=== PATIENT | female | born 1995 | race Caucasian/White ===

== ENCOUNTER 2018-08-06 15:29 | Inpatient (IN) ==
[2018-08-06] MEDS ORDERED: RINGER'S SOLUTION,LACTATED 1,000 ML IV PRN (18:55)
[2018-08-06] MEDS ORDERED: PENICILLIN G POTASSIUM 5 MILLIONUNT in DEXTROSE 5 % IN WATER 100 ML IV ONE ×2 (18:55)
[2018-08-06] MEDS ORDERED: MISOPROSTOL 100 MCG TABLET VG PRN (18:55)
[2018-08-06] MEDS ORDERED: RINGER'S SOLUTION,LACTATED 1,000 ML IV ONE (18:55)
[2018-08-06] MEDS ORDERED: LIDOCAINE HCL 50 ML VIAL PERI PRN (18:55)
[2018-08-06] MEDS ORDERED: ONDANSETRON HCL/PF 2 MG/ML VIAL IV PRN (18:55)
[2018-08-06] MEDS ORDERED: NALBUPHINE HCL 10 MG/ML AMPUL IV PRN ×2 (18:55)
[2018-08-06] MEDS ORDERED: OXYTOCIN/DEXTROSE 5%-WATER 30 UNITS/500 ML BAG IV ONE (18:55)
[2018-08-06 19:35] LABS: Cocaine Ur Negative (NEGATIVE); Urine Barbiturate Negative (NEGATIVE); Urine Benzodiazepines Negative (NEGATIVE); Urine Opiates Negative (NEGATIVE); Urine PCP Negative (NEGATIVE); Urine THC Positive (NEGATIVE)
[2018-08-06] MEDS ORDERED: ACETAMINOPHEN 325 MG TABLET PO PRN (20:23)
[2018-08-06] MEDS: PENICILLIN G POTASSIUM 2.5 MILLIONUNT in DEXTROSE 5 % IN WATER 100 ML IV SCH ×2 (23:56)
[2018-08-07] MEDS: PENICILLIN G POTASSIUM 2.5 MILLIONUNT in DEXTROSE 5 % IN WATER 100 ML IV SCH ×2 (03:52)
[2018-08-07] MEDS ORDERED: NALOXONE HCL 1 MG/1 ML SYRG IV PRN (04:00)
[2018-08-07] MEDS ORDERED: ONDANSETRON HCL/PF 2 MG/ML VIAL IV PRN (04:00)
[2018-08-07] MEDS ORDERED: BUPIVACAINE HCL/0.9 % NACL/PF 250 ML EP PRN (04:00)
[2018-08-07] MEDS ORDERED: BUPIVACAINE HCL/PF 30 ML VIAL EP SCH (04:00)
--- NOTE | 2018-08-07 04:32 | ANES ---
Anesthesia Pre Procedure Eval Vitals/Labs: Last Vital Signs Temp 36.6 C 08/06/18 20:36 Pulse 109 H 08/06/18 20:36 Resp 18 08/06/18 20:36 BP 128/72 08/06/18 20:36 Pulse Ox 97 08/06/18 20:36 HOME MEDICATIONS vitamin,calcium,iffllozj-hmxg-teokt acid tablet 1 tab PO DAILY 03/18/18 [Last Taken 08/05/18] ondansetron 4 mg disintegrating tablet 8 mg PO Q8H PRN #12 tab 04/26/18 [Last Taken Unknown] calcium carbonate 200 mg calcium (500 mg) chewable tablet 200 mg PO BID tab 07/30/18 [Last Taken 08/06/18] Allergies/Adverse Reactions: Allergies Allergy/AdvReac Type Severity Reaction Status Date / Time tramadol Allergy Intermediate Itching Verified 08/05/18 14:36 - Planned Procedure Planned Procedure: Mack epidural Medication List Reviewed:: Yes Allergies Verified: Yes Medical History (Last Reviewed 08/07/18 @ 04:31 by Cy Hicks CRNA) Anxiety (Acute) Onset Date: Unknown Chlamydia (Resolved) Onset Date: 2015 and not yet delivered (Acute) Onset Date: Unknown Gonorrhea (Resolved) Onset Date: 2010 Irregular menses (Acute) Onset Date: 01/2017 Migraine (Acute) Onset Date: Unknown Nausea and vomiting during (Acute) Onset Date: 01/2018 Spontaneous (Resolved) Onset Date: 2013 Spontaneous (Resolved) Onset Date: 2016 H/O wisdom tooth extraction (Resolved) Onset Date: Unknown Hyperemesis gravidarum (Acute) Onset Date: Unknown Anxiety (Acute) Onset Date: Unknown Upper respiratory infection (Acute) Onset Date: Unknown (Acute) Onset Date: Unknown Hyperemesis gravidarum before end of 22 week gestation with carbohydrate depletion (Acute) Onset Date: Unknown Metacarpal bone fracture Onset Date: 06/2018 right Miscarriage Surgical History (Last Reviewed 08/07/18 @ 04:31 by Cy Hicks CRNA) none (Acute) Family History (Last Reviewed 08/07/18 @ 04:31 by Cy Hicks CRNA) Uncle Asthma Diabetes Aunt Asthma Diabetes Brother Asthma Father Asthma Diabetes Heart disease Mother Diabetes Thyroid disease H/O: hysterectomy Asthma Sister Asthma Grandmother Diabetes maternal Heart disease Cancer Lung - Family Anesthesia History Family History:: no untoward family reactions to anesthesia, no familial bleeding tendencies, no family history of clotting disorders, no family history of premature - Cardiovascular Tolerates Activity: Good Heart Sounds: S1 & S2 - Anesthesia Assessment and Plan ASA Class: PS, II Anesthesia Type Plan: Epidural
--- NOTE | 2018-08-07 04:47 | ANES ---
Post Anesthesia Assessment - Vital Signs Vitals: Last Vital Signs Temp 36.6 C 08/06/18 20:36 Pulse 109 H 08/06/18 20:36 Resp 18 08/06/18 20:36 BP 128/72 08/06/18 20:36 Pulse Ox 97 08/06/18 20:36 Airway Patency: Normal - Mental Status Level Of Consciousness: Awake - Pain Level Pain Score: 0 - N/V Assessment Nausea/Vomiting Presence: None Dehydration:: No
--- NOTE | 2018-08-07 04:47 | ANES ---
Anesthesia Procedure Note Procedure Note: ANESTHESIA PROCEDURE NOTE Date of Procedure: 08/07/2018. Time of procedure: 0435. Performed by: Cy Hicks CRNA Healthcare Representative: None. Preprocedure diagnosis: Active labor. Post procedure diagnosis: Same. Procedure: Insertion of labor epidural. Indications: The patient is a 23-year-old female in active labor requesting labor epidural for pain management. Findings: See below. Details of the procedure: The patient was placed in a sitting position. DuraPrep as well as Betadine swabs X3 was applied to the patient's back. Patient was then draped in a sterile fashion. Lidocaine 1% was infiltrated to the skin and subcutaneous tissues at the level of the L3-4 interspace. The epidural space was identified using a 18-gauge Tuohy needle with etqq-ao-[id number] technique. Epidural catheter was inserted to a depth of 10 centimeters at skin. Negative test dose was elicited using 3 mL of 1.5% preservative-free lidocaine plus epinephrine 1 200,000. The epidural catheter was then taped and secured in place. A loading dose of 8 mL of 0.25% preservative-free bupivacaine was administered to the epidural catheter after negative aspiration for blood and CSF. EBL: Minimal. Fluids: N/A. Specimen: N/A. Post procedure condition: The patient tolerated the procedure well. No complications were noted. Thank you for this consultation. Cy Hicks CRNA
[2018-08-07] MEDS ORDERED: HYDROCORTISONE 30 APPL TUBE TP PRN (05:43)
[2018-08-07] MEDS ORDERED: SENNOSIDES 8.6 MG TABLET PO PRN (05:43)
[2018-08-07] MEDS ORDERED: GLYCERIN/WITCH HAZEL LEAF 40 APPL BOX TP PRN (05:43)
[2018-08-07] MEDS ORDERED: BENZOCAINE/MENTHOL 81 SPRAY CAN TP PRN (05:43)
[2018-08-07] MEDS ORDERED: BISACODYL 10 MG SUPP.RECT RC PRN (05:43)
[2018-08-07] MEDS ORDERED: OXYTOCIN/DEXTROSE 5%-WATER 30 UNITS/500 ML BAG IV ONE (05:43)
[2018-08-07] MEDS ORDERED: diphenhydrAMINE HCL 25 MG CAPSULE PO PRN (05:43)
[2018-08-07] MEDS ORDERED: oxyCODONE HCL/ACETAMINOPHEN 1 TAB TABLET PO PRN (05:43)
--- NOTE | 2018-08-07 05:44 | PN ---
Progess Note - Interim Date: 08/07/18 Time: 05:44 Narrative: 08/07/18 05:44 See refer to last office visit for H&P
--- NOTE | 2018-08-07 05:55 | OR ---
Operative Report - Dictated Report Narrative: Date of delivery: 08/07/2018 Time of delivery: 530 Gender: female weight: 2325 grams APGARS: 05/26 The patient presented to L&D for an induction of labor for IUGR at 37 weeks 0 days. She received one dose of cytotec followed by pitocin at 2 millinuits. She received an epidural and then progressed to complete dilation. She delivered a viable female over an intact perineum. Cord clamping was delayed for 60 seconds. The placenta was delivered by expression and appeared intact. She had bilateral labial lacerations of which the right labial laceration was repaired for hemostasis. Lacerations: bilateral labial of which the right was repaired in the standard surgical fashion EBL: 100 mL Complications: none Definition: * The number of deliveries resulting in a live the patient experienced prior to current hospitalization * The previous delivery of live twins or any live multiple gestation is considered one live event. *If primagravida or nulliparous is documented select zero for the number of previous live births. Live Births: 0
[2018-08-07] MEDS: DOCUSATE SODIUM 100 MG CAPSULE PO SCH (08:15)
[2018-08-07] MEDS: IBUPROFEN 800 MG TABLET PO PRN ×2 (08:15→17:39)
[2018-08-07] MEDS: oxyCODONE HCL/ACETAMINOPHEN 1 TAB TABLET PO PRN ×3 (08:15→19:36)
[2018-08-08] MEDS: DOCUSATE SODIUM 100 MG CAPSULE PO SCH ×3 (02:21→21:03)
[2018-08-08] MEDS: oxyCODONE HCL/ACETAMINOPHEN 1 TAB TABLET PO PRN ×4 (02:24→19:24)
[2018-08-08] MEDS: IBUPROFEN 800 MG TABLET PO PRN ×4 (02:25→23:01)
--- NOTE | 2018-08-08 10:19 | PN ---
Subjective - Date and Time Seen Date: 08/08/18 Time: 10:16 Subjective Narrative: The patient reports her vaginal bleeding is improving. No other concerns today Objective Objective Narrative: See vital signs - Review of Systems Generalized/Overall Review: Reports: No Symptoms Reported Misc: All systems neg except as marked - Vitals Vitals: Last Vital Signs Temp 36.8 C 08/08/18 02:15 Pulse 80 08/08/18 02:15 Resp 16 08/08/18 02:15 BP 110/65 08/08/18 02:15 Pulse Ox 99 08/08/18 02:15 - Exam Constitutional: Present: Alert, Oriented x3, Cooperative, No distress Abdomen: Present: soft, nontender, nondistended - fundus is firm Extremity: Present: non-tender, no calf tenderness Skin Exam: Present: normal color, warm/dry, no cyanosis Appearance: Present: appropriate appearance Eye contact: Present: cooperative Thoughts: Present: normal thought pattern Assessment/Plan Plan Narrative: PPD 1 s/p Doing well Discharge tomorrow - Problems/Diagnosis (1) IUGR (intrauterine growth restriction) Problem: Acute (2) IUGR (intrauterine growth restriction) Problem: Acute
[2018-08-09] MEDS: oxyCODONE HCL/ACETAMINOPHEN 1 TAB TABLET PO PRN ×3 (01:08→11:23)
[2018-08-09] MEDS: DOCUSATE SODIUM 100 MG CAPSULE PO SCH (07:01)
[2018-08-09] MEDS: IBUPROFEN 800 MG TABLET PO PRN (07:01)
[2018-08-09 07:28] VITALS: BP 129/84
--- NOTE | 2018-08-09 07:35 | PN ---
Subjective - Date and Time Seen Date: 08/09/18 Time: 07:33 Subjective Narrative: The patient reports her vaginal bleeding is improving. No other concerns today Objective Objective Narrative: See vital signs - Review of Systems Generalized/Overall Review: Reports: No Symptoms Reported Misc: All systems neg except as marked - Vitals Vitals: Last Vital Signs Temp 36.4 C 08/09/18 07:00 Pulse 98 08/09/18 07:00 Resp 18 08/09/18 07:00 BP 129/84 08/09/18 07:00 Pulse Ox 99 08/09/18 07:00 - Exam Constitutional: Present: Alert, Oriented x3, Cooperative, No distress Abdomen: Present: soft, nontender, nondistended - fundus is firm Extremity: Present: non-tender, no calf tenderness Skin Exam: Present: normal color, warm/dry, no cyanosis Appearance: Present: appropriate appearance Eye contact: Present: cooperative Thoughts: Present: normal thought pattern Assessment/Plan Plan Narrative: PPD 2 s/p Doing well Discharge today - Problems/Diagnosis (1) IUGR (intrauterine growth restriction) Problem: Acute (2) IUGR (intrauterine growth restriction) Problem: Acute
== END 2018-08-09 13:30 | disposition home or self-care (01) | DRG 807 ==
LOC: OB 18:52
PROVIDERS: ADMIT Obstetrics & Gynecology; ATTEND Obstetrics & Gynecology
CPT/HCPCS: 59025; 80307; 86850; 86900; 88307; G0479; J2405